=== PATIENT | male | born 1970 | race Caucasian/White ===

== ENCOUNTER 2016-09-10 05:13 | Emergency (ER) | payer OTHER | END 2016-09-10 07:19 | disposition home or self-care (01) | LOC: ER1 05:13 | DX: S29.011A Strain of muscle and tendon of front wall of thorax, initial encounter (principal); I25.2 Old myocardial infarction; E11.9 Type 2 diabetes mellitus without complications; I10 Essential (primary) hypertension; J44.9 Chronic obstructive pulmonary disease, unspecified; J45.909 Unspecified asthma, uncomplicated; F20.9 Schizophrenia, unspecified; F17.200 Nicotine dependence, unspecified, uncomplicated; X50.0XXA Overexertion from strenuous movement or load, initial encounter; Y93.89 Activity, other specified; Z79.899 Other long term (current) drug therapy | CPT/HCPCS: 71020; 96372; 99284; J1885 ==

== ENCOUNTER → 2020-11-17 | Outpatient (CLI) | payer MEDICARE, SELFPAY ==
[~2020-11-17] MED LIST: AMOXICILLIN500 MG PO; CEFDINIR300 MG PO; ONDANSETRON ODT4 MG SL; PROAIR HFA8.5 GM INH
== END ==
LOC: ECHO 12:00 → NM 13:00
DX: R07.9 Chest pain, unspecified (principal); R06.02 Shortness of breath
CPT/HCPCS: ECHO; 78452; 93017; 93306; A9502; J2785

== ENCOUNTER 2021-01-21 21:48 | Emergency (ER) | payer MEDICARE, SELFPAY ==
[2021-01-21 22:06] LABS: HEMOGLOBIN 16.8 gm/dl (14.0-17.5); RED BLOOD COUNT 5.49 M/UL (4.20-5.50); WHITE BLOOD COUNT 10.8 K/UL (4.5-11.0)
[2021-01-21 23:04] LABS: BUN/CREATININE RATIO 11 (0-10)
[2021-01-22] MEDS ORDERED: KEFLEX750 MG PO (01:36)
== END 2021-01-22 01:45 | disposition home or self-care (01) ==
LOC: ER1 21:48
PROVIDERS: Physician Assistant
DX: R42 Dizziness and giddiness (principal); R53.1 Weakness; N39.0 Urinary tract infection, site not specified; I25.2 Old myocardial infarction; F17.200 Nicotine dependence, unspecified, uncomplicated; E11.9 Type 2 diabetes mellitus without complications; I10 Essential (primary) hypertension; Z79.84 Long term (current) use of oral hypoglycemic drugs; V89.2XXA Person injured in unspecified motor-vehicle accident, traffic, initial encounter; Y92.410 Unspecified street and highway as the place of occurrence of the external cause
CPT/HCPCS: 71045; 80053; 80307; 81001; 82550; 82553; 83874; 84484; 85025; 93005; 99285

== ENCOUNTER → 2022-02-21 | Outpatient (CLI) | payer MEDICARE ==
[~2022-02-21] MED LIST changes: +KEFLEX750 MG PO
== END ==
LOC: RAD 13:29
DX: R06.02 Shortness of breath (principal); Z72.0 Tobacco use
CPT/HCPCS: 71046

== ENCOUNTER → 2022-03-15 | Day surgery (SDC) | payer MEDICARE ==
[~2022-03-15] VITALS: Ht 182.9 cm; Wt 102.5 kg
[~2022-03-15] MED LIST changes: +FLOMAX 0.4 MG0.4 MG PO; +JANUVIA100 MG PO; +JARDIANCE25 MG PO; +LOSARTAN POTASS25 MG PO; +METOPROLOL TART50 MG PO; +OMEPRAZOLE20 MG PO; +PROPRANOLOL HCL10 MG PO; +TERBINAFINE HC250 MG PO; +VRAYLAR3 MG PO
== END | disposition home or self-care (01) ==
LOC: OR 06:47
DX: R19.5 Other fecal abnormalities (principal); D12.2 Benign neoplasm of ascending colon; I11.0 Hypertensive heart disease with heart failure; I50.9 Heart failure, unspecified; J44.9 Chronic obstructive pulmonary disease, unspecified; K21.9 Gastro-esophageal reflux disease without esophagitis; Z80.0 Family history of malignant neoplasm of digestive organs; Z72.0 Tobacco use
CPT/HCPCS: 82962; J2704